=== PATIENT | male | born 1955 | race Caucasian/White ===

== ENCOUNTER 2019-07-04 01:49 | Emergency (ER) | payer OTHER, MEDICAID ==
[~2019-07-04] VITALS: Ht 182.9 cm; Wt 113.9 kg
[~2019-07-04 01:49] MED LIST: ACET325T26 PO; APIX5TAB PO; ASPI-650 PO; ASPI81TA45 PO; ATOR40TA78 PO; Benzonatate PO; CEPH-367 PO; CYAN500T54 PO; DOXY100C2 PO; FLUT16SP24 NAS; GABA600T PO; HYDR-36 PO; ISOS10TA6 PO; ISOS5TAB2 PO; LORA2TAB99 PO; METO-95 PO; METO25TA35 PO; METO5AMP2; MORP-29 PO; MORP30CA15 PO; MORPHINE SULFATE; QUET200T4 PO; SOTA120T14 PO; SOTA120T26 PO
--- NOTE | 2019-07-04 02:11 | NUR ---
assessment made. ERP at bedside. c/o his pain pump was beeping. no beeping at this time. pump was placed ~ a year ago.
[2019-07-04 06:17] VITALS: BP 111/66
--- NOTE | 2019-07-04 07:56 | NUR ---
REPORT RECEIVED FROM [employer] REP. RONALD MADE AWARE OF REPORT. ANTICIPATE DC
== END 2019-07-04 08:17 ==
LOC: ED 05:21
DX: T85.695A Other mechanical complication of other nervous system device, implant or graft, initial encounter (principal); I48.91 Unspecified atrial fibrillation; I25.2 Old myocardial infarction; Z95.0 Presence of cardiac pacemaker
CPT/HCPCS: 99281

== ENCOUNTER → 2020-02-11 | Outpatient (CLI) | payer MEDICARE ==
[~2020-02-11] MED LIST changes: +HYDR-3246 PO; -HYDR-36 PO
[2020-02-11 14:25] LABS: BASOPHILS % (AUTO) 1 % (0-1); EOSINOPHILS % (AUTO) 3 % (1-7); LYMPHOCYTES % (AUTO) 40 % (22-44); MEAN CORPUSCULAR HGB CONC 33.6 g/dL (33.2-36.2); MEAN PLATELET VOLUME 7.3 fL (7.4-10.4); MONOCYTES % (AUTO) 8 % (2-9); NEUTROPHILS % (AUTO) 47 % (42-75); PLATELET COUNT 229 x10^3/uL (130-400); RED BLOOD COUNT 5.08 x10^6/uL (4.38-5.82); RED CELL DISTRIBUTION WIDTH 12.9 % (9.4-14.8)
[2020-02-11 14:28] LABS: MD NO
[2020-02-11 14:32] LABS: ANION GAP 4 mmol/L (5-15); CALCIUM 8.8 mg/dL (8.5-10.1); CHLORIDE 104 mmol/L (98-107)
[2020-02-11 14:40] LABS: ALANINE AMINOTRANSFERASE 31 U/L (12-78); ALKALINE PHOSPHATASE 69 U/L (45-117); BILIRUBIN,TOTAL 0.8 mg/dL (0.2-1.0); CHOL/HDL RATIO 2.8; CHOLESTEROL, TOTAL 191 mg/dL (140-239); CREATININE 0.88 mg/dL (0.7-1.3); HDL CHOL % 36 % (26-37); HDL CHOLESTEROL (DIRECT) 69 mg/dL (40-60); LDL CHOLESTEROL,CALCULATED 84 mg/dL (54-169); LDL/HDL RATIO 1.2 (0.5-3.0); T4 (THYROXINE) 7.3 mcg/dL (4.5-12.1); TOTAL PROTEIN 7.8 g/dL (6.4-8.2); TRIGLYCERIDES 188 mg/dL (50-200); VLDL CHOLESTEROL 38 mg/dL (0-25)
== END | disposition home or self-care (01) ==
LOC: CVU 12:47
PROVIDERS: ATTEND Nurse Practitioner Family
DX: I34.8 Other nonrheumatic mitral valve disorders (principal); I10 Essential (primary) hypertension; I48.91 Unspecified atrial fibrillation; R55 Syncope and collapse; Z95.0 Presence of cardiac pacemaker
CPT/HCPCS: 36415; 80053; 80061; 84436; 84443; 84481; 85025; 93306